=== PATIENT | female | born 1985 | race Two or more races ===

== ENCOUNTER 2024-11-14 19:09 | Emergency (ER) | payer MEDICAID, OTHER ==
[~2024-11-14] VITALS: Ht 157.5 cm; Wt 76.2 kg
[2024-11-14 20:10] VITALS: BP 143/91; PULSE 114; RESP 19; O2SAT 97
[2024-11-14 20:39] LABS: Rapid Influenza B Negative (Negative)
[2024-11-14 20:41] LABS: Rapid Influenza A Positive (Negative)
--- NOTE | 2024-11-14 20:43 | ED.PDOC ---
GI ASSESSMENT HPI Comments 39-YEAR-OLD FEMALE PRESENTS TO THE ED CHIEF COMPLAINT FLU-LIKE SYMPTOMS X2 DAYS. PATIENT REPORTS COUGH, FEVERS, SORE THROAT, AND BODY ACHES. HAS BEEN TAKING [id number] MEDICATIONS WITH LITTLE RELIEF. REPORTS NO RECENT TRAVEL OR ILL CONTACTS. SHE DENIES CHEST PAIN, DIFFICULTY BREATHING, SHORTNESS OF BREATH, VOMITING OR DIARRHEA. Chief Complaint: Flu like Time Seen by MD: 19:22 Reviewed Notes: Nurses Notes, Medications, Allergies Allergies: Coded Allergies: NO KNOWN ALLERGIES (Unverified , 11/14/24) Home Meds Active Scripts Acetaminophen (Acetaminophen Extra Stren) 500 Mg Tab, 2 TAB PO TID PRN for 2 Days, #12 TAB TAKE 2 TABS BY MOUTH EVERY 8 HOURS NEEDED FOR FEVER. 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 Constitutional: reports: fever; denies: chills, diaphoresis, fatigue, malaise, sweats, weakness, others EENTM: reports: nasal discharge, throat pain, throat swelling; denies: blurred vision, double vision, ear bleeding, ear discharge, ear drainage, ear pain, ear ringing, eye pain, eye redness, hearing loss, mouth pain, mouth swelling, nose bleeding, nose congestion, nose pain, photophobia, tearing, voice changes, others Respiratory: reports: cough; denies: hemoptysis, orthopnea, SOB at rest, shortness of breath, SOB with excertion, stridor, wheezing, others Cardiovascular: denies: chest pain, dizzy spells, diaphoresis, Dyspnea on exertion, edema, irregular heart beat, left arm pain, lightheadedness, palpitations, PND, syncope, others Gastrointestinal: denies: abdomen distended, abdominal pain, blood streaked bowels, constipated, diarrhea, dysphagia, difficulty swallowing, hematemesis, melena, nausea, poor appetite, poor fluid intake, rectal bleeding, rectal pain, vomiting, others Genitourinary: denies: abnormal vagina bleeding, burning, dyspareunia, dysuria, flank pain, frequency, hematuria, incontinence, pain, , vagina discharge, urgency, others Neurological: denies: dizziness, fainting, headache, left sided numbness, left sided weakness, numbness, paresthesia, pre-existing deficit, right sided numbness, right sided weakness, seizure, speech problems, tingling, tremors, weakness, others Musculoskeletal: denies: back pain, gout, joint pain, joint swelling, muscle pain, muscle stiffness, neck pain, others Integumetry: denies: bruises, change in color, change in hair/nails, dryness, laceration, lesions, lumps, rash, wounds, others Allergic/Immunocompromised: denies: Difficulty Healing, Frequent Infections, Hives, Itching, others Hematologic/Lymphatic: denies: anemia, blood clots, easy bleeding, easy bruising, swollen glands, others Endocrine: denies: excessive hunger, excessive sweating, excessive thirst, excessive urination, flushing, intolerance to cold, intolerance to heat, unexplained weight gain, unexplained weight loss, others Psychiatric: denies: anxiety, bipolar disorder, depression, hopeless, panic disorder, schizophrenia, sleepless, suicidal, others Physical Exam General Appearance: No Apparent Distress, Normal HEENT: Pharyngeal Erythema, TMs Normal Neck: Full Range of Motion, Non-Tender Respiratory: Chest Non-Tender, Lungs Clear, No Accessory Muscle Use, No Respiratory Distress, Normal Breath Sounds Cardiovascular: No Edema, No JVD, No Murmur, No Gallop, Normal Peripheral Pulses, Regular Rate/Rhythm Breast Exam: Deferred Gastrointestinal: No Organomegaly, Non Tender, No Pulsatile Mass, Normal Bowel Sounds, Soft Genitalia: Deferred Pelvic: Deferred Rectal: Deferred Extremities: Normal capillary refill, Normal inspection, Normal range of motion, Non-tender, No pedal edema Musculoskeletal : Apperance: Normal Neurologic: Alert, whitewasher II-XII nml as Tested, No Motor Deficits, Normal Affect, Normal Mood, No Sensory Deficits Cerebellar Function: Normal Reflexes: Normal Skin: Dry, Normal Color, Warm Lymphatic: No Adenopathy Was a procedure done? Was a procedure done?: No GI differential Dx Differential Diagnosis: Gastroenteritis, Electrolyte Imbalance, Food Poisoning, Bacterial, Parasitic, Viral X-Ray, Labs, Meds, VS Vital Signs Date Time Temp Pulse Resp B/P (MAP) Pulse Ox O2 Delivery O2 Flow Rate FiO2 11/14/24 22:01 99.4 11/14/24 20:56 100.9 11/14/24 20:10 100.9 114 19 143/91 (108) 97 100.9 11/14/24 20:10 114 19 97 11/14/24 19: 99.6 114 16 134/94 (107) 96 Lab Test 11/14/24 19:34 Range/Units Influenza Type A Antigen Positive Negative Influenza Type B Antigen Negative Negative SARS-CoV-2 Antigen (Rapid) Negative NEGATIVE Current Medications Medications (Trade) Dose Ordered Sig/Ashley Route Start Time Stop Time Status Last Admin Acetaminophen (Tylenol Tablet Or Capsule) 1,000 mg ONCE ONCE PO 11/14/24 21:00 11/14/24 21:01 DC 11/14/24 20:56 X-Ray, Labs, Meds, VS Comment INFLUENZA A POSITIVE. TRIAL TAMIFLU, PROMETHAZINE-DM, AND ACETAMINOPHEN FOR PAIN AND FEVER. REST INCREASE P.O. FLUIDS WITH ELECTROLYTES LIGHT DIET TOLERATED. FOLLOW UP WITH YOUR PCP WITHIN 2-3 DAYS NECESSARY. ER RETURN PRECAUTIONS GIVEN PATIENT INDICATED UNDERSTANDING AND AGREES WITH DISCHARGE PLAN OF CARE. Time of 1ST Reevaluation: 20:42 Reevaluation 1ST: Improved Patient Education/Counseling: Diagnosis, Treatment, Prognosis, Need For Follow Up Family Education/Counseling: No Family Present Departure 1 Departure Time of Disposition: 20:42 Impression: Primary Impression: Influenza A Disposition: 01 HOME / SELF CARE / HOMELESS Condition: Stable e-Prescriptions Acetaminophen (Acetaminophen Extra Stren) 500 Mg Tab 2 TAB PO TID PRN for 2 Days, #12 TAB TAKE 2 TABS BY MOUTH EVERY 8 HOURS NEEDED FOR FEVER. Prov: TITUS GREEN 11/14/24 Promethazine-Dm (Promethazine Dm 6.25-15 mg/5Ml) 1 Becka Becka 5 ML PO QID PRN for 3 Days, #60 ML Prov: TITUS GREEN 11/14/24 Oseltamivir Phosphate (Tamiflu) 75 Mg Cap 1 CAP PO BID for 6 Days, #10 CAP Prov: TITUS GREEN 11/14/24 Discharged With: Self Critical Care Note Critical Care Time?: No Stability Stability form required: No TITUS GREEN Nov 14, 2024 20:43
[2024-11-14] MEDS ORDERED: OSEL75CA5 PO (20:53)
[2024-11-14] MEDS ORDERED: ACET-6 PO (20:53)
[2024-11-14] MEDS ORDERED: PROM1SOL4 PO (20:53)
[2024-11-14] MEDS: ACETAMINOPHEN 500 MG TAB or CAP PO ONE (20:56)
[2024-11-14 20:58] LABS: COVID19 ANTIGEN SOFIA FIA NEGATIVE (NEGATIVE)
[2024-11-14 22:01] VITALS: TEMP 99.4
== END 2024-11-14 22:07 | disposition home or self-care (01) ==
LOC: ER 19:09
DX: J10.1 Influenza due to other identified influenza virus with other respiratory manifestations (principal); Z20.822 Contact with and (suspected) exposure to COVID-19
CPT/HCPCS: 36415; 87426; 87804

== ENCOUNTER 2025-05-16 22:19 | Emergency (ER) | payer MEDICAID ==
[~2025-05-16] VITALS: Ht 157.5 cm; Wt 77.8 kg
[2025-05-17] MEDS ORDERED: ACET500T58 PO (01:38)
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
[2025-05-17 02:00] VITALS: BP 152/91; PULSE 69; RESP 16; TEMP 98
[2025-05-17 02:02] VITALS: O2SAT 98
== END 2025-05-17 02:03 | disposition home or self-care (01) ==
LOC: ER 22:19
DX: S39.012A Strain of muscle, fascia and tendon of lower back, initial encounter (principal); T20.00XA Burn of unspecified degree of head, face, and neck, unspecified site, initial encounter; Z98.890 Other specified postprocedural states; X08.8XXA Exposure to other specified smoke, fire and flames, initial encounter; Y93.89 Activity, other specified; Y92.89 Other specified places as the place of occurrence of the external cause; Y99.0 Civilian activity done for income or pay